=== PATIENT | male | born 1975 | race Caucasian/White ===

== ENCOUNTER 2022-01-25 23:03 | Emergency (ER) | payer SELFPAY ==
[~2022-01-25] VITALS: Ht 162.6 cm; Wt 65.8 kg
[2022-01-25 23:05] VITALS: BP 126/77
--- NOTE | 2022-01-25 23:05 | NUR ---
DEMETRIA ISAACSP TAKEN TO CHAIR A
--- NOTE | 2022-01-26 00:01 | NUR ---
Dr. Oliveira examining patient.
--- NOTE | 2022-01-26 00:15 | NUR ---
NOTIFIED BY OFFICER Maya BABCOCK #[id number], PT CITED AND RELEASED.
--- NOTE | 2022-01-26 00:27 | NUR ---
C-COLLAR FOUND ON FLOOR. PT NOTE IN ASSIGNED AREA. NOTIFIED BY ADMITTING PT WAS SEEN LEAVING THE BUILDING. PT ELOPED AT THIS TIME.
[2022-01-26] MEDS ORDERED: IBUP-2213 PO (10:37)
[2022-01-26] MEDS ORDERED: LID5T TP (10:37)
== END 2022-01-26 00:27 | disposition left against medical advice (07) ==
LOC: MED 23:03
DX: M54.2 Cervicalgia (principal); E11.9 Type 2 diabetes mellitus without complications; Z79.4 Long term (current) use of insulin; Z79.899 Other long term (current) drug therapy
CPT/HCPCS: 99283

== ENCOUNTER 2022-01-26 03:45 | Emergency (ER) | payer SELFPAY ==
[~2022-01-26] VITALS: Ht 152.4 cm; Wt 49.9 kg
[2022-01-26 04:28] VITALS: BP 119/72
--- NOTE | 2022-01-26 04:35 | NUR ---
TO LOBBY A/W BED AMBULATORY
--- NOTE | 2022-01-26 05:39 | NUR ---
BLOOD COLLECTED AND GIVEN TO PHLEB.
--- NOTE | 2022-01-26 05:57 | NUR ---
PT TAKEN TO BED 4
--- NOTE | 2022-01-26 05:59 | NUR ---
X-Ray at bedside.
[2022-01-26 06:05] LABS: BASOPHILS % (AUTO) 0.2 % (0.0-2.0); EOSINOPHILS % (AUTO) 0.3 % (0.0-4.0); HEMATOCRIT 46.4 % (36-52); LYMPHOCYTES # (AUTO) 1.4 K/uL (2.0-11.5); LYMPHOCYTES % (AUTO) 10.4 % (20.5-51.1); MEAN CORPUSCULAR HEMOGLOBIN 30 pg (27-31); MEAN CORPUSCULAR HGB CONC 35 g/dL (33-37); MEAN CORPUSCULAR VOLUME 87.4 fL (80-94); MONOCYTES # (AUTO) 0.4 K/uL (0.8-1.0); MONOCYTES % (AUTO) 3.1 % (1.7-9.3); NEUTROPHILS # (AUTO) 11.6 K/uL (1.8-7.7); PLATELET COUNT (AUTO) 284 K/uL (140-450); RED BLOOD CELL COUNT(AUTO) 5.31 MIL/uL (4.20-6.10); WHITE BLOOD COUNT (AUTO) 13.5 K/uL (4.8-10.8)
[2022-01-26 06:28] LABS: PROTHROMBIN TIME 9.7 secs (10.8-13.4)
[2022-01-26 06:32] LABS: ALBUMIN 4.1 g/dL (3.4-5.0); ANION GAP 15.1 (8-16); ASPARTATE AMINOTRANSFERASE 24 U/L (15-37); CHLORIDE 99 mmol/L (98-107); CREATININE 0.8 mg/dL (0.6-1.3); GFR ARICAN-AMERICAN 133 mL/min (>90); GLUCOSE 299 mg/dL (74-106); POTASSIUM 4.1 mmol/L (3.5-5.1); SODIUM SERUM 140 mmol/L (136-145); TOTAL BILIRUBIN 0.4 mg/dL (0.0-1.0); UREA NITROGEN, BLOOD 9 mg/dL (7-18)
[2022-01-26 06:48] LABS: BARBITURATE, URINE NEGATIVE ng/ml (NEG <=200); BENZODIAZEPINE, URINE NEGATIVE ng/mL (NEG <=200); CANNABINOID, URINE NEGATIVE ng/mL (NEG <=50); COCAINE, URINE NEGATIVE ng/mL (NEG <=300); OPIATE, URINE NEGATIVE ng/mL (NEG <=2000); PHENCYCLIDINE SCREEN,URINE NEGATIVE ng/mL (NEG <=25)
--- NOTE | 2022-01-26 06:49 | NUR ---
LAB AT BEDSIDE
--- NOTE | 2022-01-26 09:07 | NUR ---
here for cp, going to [facility] angio, st on cm ,hr 104, o2 sat 99% ra, srup times 2
[2022-01-26] MEDS ORDERED: IBUP-2213 PO (10:37)
[2022-01-26] MEDS ORDERED: LID5T TP (10:37)
[2022-01-26 11:36] VITALS: BP 113/78
--- NOTE | 2022-01-26 12:07 | NUR ---
Patient discharged with v/s stable. Written and verbal after care instructions given and explained. Patient verbalized understanding. Ambulatory with steady gait. All questions addressed prior to discharge. Advised to follow up with PMD.
== END 2022-01-26 11:36 | disposition home or self-care (01) ==
LOC: MED 03:45
DX: S20.219A Contusion of unspecified front wall of thorax, initial encounter (principal); E11.65 Type 2 diabetes mellitus with hyperglycemia; Z79.4 Long term (current) use of insulin; Z79.899 Other long term (current) drug therapy; X58.XXXA Exposure to other specified factors, initial encounter; Y93.89 Activity, other specified; Y92.89 Other specified places as the place of occurrence of the external cause; Y99.8 Other external cause status
CPT/HCPCS: 36415; 71045; 71275; 80053; 80305; 84484; 85025; 85379; 85610; 85730; 93005; 99285; Q0092; Q9967